=== PATIENT | female | born 1995 | race Two or more races ===

== ENCOUNTER 2022-07-24 21:18 | Emergency (ER) | payer SELFPAY ==
[~2022-07-24] VITALS: Ht 152.4 cm; Wt 49.9 kg
[2022-07-24 21:47] VITALS: BP 128/70
--- NOTE | 2022-07-24 21:50 | NUR ---
BIBFAMILY C/O DOG BITE WOUNDS AILYN HANDS AND ARMS. PT AWAKE AND ALERT X4 BREATHING UNLABORED. DENIES ANY OTHER INJURIES. UNKNOWN TDAP.
[2022-07-24] MEDS ORDERED: HYDROCODONE/APAP 5/325MG TABLET ONE (21:56)
[2022-07-24] MEDS ORDERED: TDAP [DIPH/PERTUSSIS/TET] 0.5 ML VIAL IM ONE ×2 (21:56→22:00)
--- NOTE | 2022-07-24 21:58 | NUR ---
DR. VALERIE STOLL AT PT'S BEDSIDE FOR EVAL
[2022-07-24] MEDS ORDERED: AMOX/CLAVULANATE 875 MG TABLET PO ONE (22:00)
[2022-07-24] MEDS ORDERED: HYDROCODONE/APAP 5/325MG TABLET PO ONE (22:00)
--- NOTE | 2022-07-24 22:01 | NUR ---
EMT AT BEDSIDE FOR WOUND CARE
[2022-07-24] MEDS ORDERED: AMOX/CLAVULANATE 875 MG TABLET ONE (22:06)
[2022-07-24] MEDS ORDERED: LIDOCAINE 1%-EPI 1:100,000 20 ML VIAL ONE (22:13)
--- NOTE | 2022-07-24 23:13 | NUR ---
DR. VALERIE JONES AT PT'S BEDSIDE FOR SUTURES
[2022-07-24] MEDS ORDERED: HYDR-3972 PO (23:17)
[2022-07-24] MEDS ORDERED: AMOX-430 PO (23:17)
--- NOTE | 2022-07-24 23:20 | NUR ---
EMT AT BEDSIDE FOR WOUND CARE TO SUTURES
--- NOTE | 2022-07-24 23:26 | NUR ---
Patient discharged to home in stable condition. RX Written and verbal after care instructions given. Patient verbalizes understanding of instruction. PT ambulatory with a steady gait
[2022-07-25] MEDS ORDERED: AMOX-430 PO (01:49)
[2022-07-25] MEDS ORDERED: HYDR-3972 PO (01:49)
== END 2022-07-24 21:50 | disposition home or self-care (01) ==
LOC: ER 21:38
DX: S61.411A Laceration without foreign body of right hand, initial encounter (principal); S46.321A Laceration of muscle, fascia and tendon of triceps, right arm, initial encounter; S51.012A Laceration without foreign body of left elbow, initial encounter; Z60.2 Problems related to living alone; Z79.899 Other long term (current) drug therapy; W54.0XXA Bitten by dog, initial encounter; Y93.89 Activity, other specified; Y92.89 Other specified places as the place of occurrence of the external cause; Y99.8 Other external cause status
CPT/HCPCS: 99283; 12004; 90471; 90715; A6403; J3490